=== PATIENT | female | born 1985 | race African-American/Black ===

== ENCOUNTER 2019-02-24 10:54 | Emergency (ER) | payer MEDICAID ==
[~2019-02-24] VITALS: Ht 182.9 cm; Wt 114.0 kg
[2019-02-24] MEDS ORDERED: ACETAMINOPHEN 325MG TABLET PO ONE (14:30)
[2019-02-24] MEDS ORDERED: SODIUM CHLORIDE 0.9% 1,000 ML IV ONE (14:31)
[2019-02-24 15:14] LABS: BASOPHILS % 0.9 % (0.0-2.0); EOSINOPHILS % 1.8 % (0.0-5.0); HEMATOCRIT. 34.9 % (36.0-48.0); HEMOGLOBIN. 11.3 g/dL (12.0-16.0); LYMPHOCYTES % 27.2 % (20.0-50.0); MEAN CORPUSCULAR HEMOGLOBIN 24.4 pg (28.0-32.0); MEAN CORPUSCULAR VOLUME 75.5 fL (81.0-99.0); MEAN PLATELET VOLUME 7.9 fl (7.4-10.4); MONOCYTES % 5.9 % (2.0-8.0); NEUTROPHILS % 64.2 % (40.0-76.0); PLATELET 376 x1000/uL (130-400); RED BLOOD CELL COUNT 4.62 mill/uL (4.2-5.4); RED CELL DISTRIBUTION WIDTH 16.7 % (11.6-14.6)
[2019-02-24 15:20] LABS: CHLORIDE 106 mEq/L (98-107)
[2019-02-24 15:31] LABS: B-HCG QUANTITATIVE < 1 mIU/mL (<3)
[2019-02-24 16:25] VITALS: BP 106/56
== END 2019-02-24 16:46 | disposition home or self-care (01) ==
LOC: ER 10:54
DX: D25.9 Leiomyoma of uterus, unspecified (principal); N83.202 Unspecified ovarian cyst, left side; J45.909 Unspecified asthma, uncomplicated
CPT/HCPCS: 36415; 76830; 76856; 80053; 83690; 84702; 85025; 86850; 86900; 86901; 99284; J7030; Z7610

== ENCOUNTER 2023-08-23 16:26 | Emergency (ER) | payer MEDICAID ==
[~2023-08-23] VITALS: Ht 175.3 cm; Wt 110.0 kg
[2023-08-23 16:36] VITALS: BP 145/86; PULSE 90; RESP 18; TEMP 98.6; O2SAT 98
== END 2023-08-23 21:25 | disposition left against medical advice (07) ==
LOC: ER 16:26
DX: R10.9 Unspecified abdominal pain (principal); Z53.21 Procedure and treatment not carried out due to patient leaving prior to being seen by health care provider

== ENCOUNTER 2023-09-20 02:16 | Emergency (ER) | payer MEDICAID, OTHER ==
[~2023-09-20] VITALS: Ht 175.3 cm; Wt 96.0 kg
[2023-09-20 02:19] VITALS: BP 110/80; PULSE 100; RESP 18; TEMP 98.1; O2SAT 100
[2023-09-20] MEDS: ACETAMINOPHEN 1000MG/100ML 100 ML IV ONE (02:30)
[2023-09-20] MEDS ORDERED: ONDANSETRON HCL 4MG/2ML INJ IV ONE (02:30)
[2023-09-20] MEDS: SODIUM CHLORIDE 0.9% 1,000 ML IV ONE (02:30)
[2023-09-20 03:01] LABS: BASOPHILS % 0.9 % (0.0-2.0); EOSINOPHILS % 2.3 % (0.0-5.0); HEMATOCRIT. 41.5 % (36.0-48.0); HEMOGLOBIN. 13.5 g/dL (12.0-16.0); LYMPHOCYTES % 27.7 % (20.0-50.0); MEAN CORPUSCULAR HEMOGLOBIN 27.9 pg (28.0-32.0); MEAN CORPUSCULAR HGB CONC 32.6 g/dL (31.0-37.0); MEAN CORPUSCULAR VOLUME 85.5 fL (81.0-99.0); MEAN PLATELET VOLUME 8.1 fl (7.4-10.4); MONOCYTES % 7.1 % (2.0-8.0); PLATELET 297 x1000/uL (130-400); RED BLOOD CELL COUNT 4.86 mill/uL (4.2-5.4); RED CELL DISTRIBUTION WIDTH 16.1 % (11.6-14.6)
[2023-09-20 03:14] LABS: CHLORIDE 106 mEq/L (98-107); POTASSIUM 3.8 mEq/L (3.5-5.1); SODIUM 138 mEq/L (136-145)
[2023-09-20 03:15] LABS: CALCIUM 9.9 mg/dL (8.7-10.4); CARBON DIOXIDE 25 mEq/L (21-32)
[2023-09-20 03:20] LABS: CREATININE 0.8 mg/dL (0.6-1.0); GLUCOSE 90 mg/dL (70-105); UREA NITROGEN BLOOD 9 mg/dL (9-23)
[2023-09-20 03:31] LABS: B-HCG QUANTITATIVE 1 mIU/mL (<3)
[2023-09-20] MEDS: ONDANSETRON HCL 4MG/2ML INJ IV NR (05:19)
[2023-09-20] MEDS ORDERED: METO-293 MT (05:42)
[2023-09-20] MEDS ORDERED: ACET-2708 MT (05:42)
[2023-09-20] MEDS ORDERED: PNV1TABL76 MT (05:42)
== END 2023-09-20 06:06 | disposition home or self-care (01) ==
LOC: ER 02:16
DX: O26.891 Other specified pregnancy related conditions, first trimester (principal); J45.909 Unspecified asthma, uncomplicated; R11.2 Nausea with vomiting, unspecified; Z3A.01 Less than 8 weeks gestation of pregnancy
CPT/HCPCS: 99285; 96365; 76830; 76856; 96375; 80048; 84702; 85025; 86850; 86900; 86901; 36415; J2405; J7030; J0131

== ENCOUNTER 2024-07-13 00:17 | Emergency (ER) | payer MEDICAID, OTHER ==
[~2024-07-13] VITALS: Ht 180.3 cm; Wt 143.0 kg
[~2024-07-13 00:17] MED LIST: ACET-2708 MT; METO-293 MT; PNV1TABL76 MT
[2024-07-13 00:25] VITALS: O2SAT 100
[2024-07-13 01:36] VITALS: TEMP 36.7; O2SAT 99
[2024-07-13 01:45] VITALS: BP 135/77; PULSE 67; RESP 14
[2024-07-13] MEDS: ONDANSETRON 4MG ODT PO STA (01:45)
[2024-07-13] MEDS: HYDROCODONE/ACETAMINOPHEN 5/325MG TABLET PO STA (01:45)
[2024-07-13 02:09] LABS: BASOPHILS % 0.7 % (0.0-2.0); EOSINOPHILS % 1.5 % (0.0-5.0); HEMATOCRIT. 41.5 % (36.0-48.0); HEMOGLOBIN. 13.7 g/dL (12.0-16.0); LYMPHOCYTES % 23.9 % (20.0-50.0); MEAN CORPUSCULAR HEMOGLOBIN 29.4 pg (28.0-32.0); MEAN CORPUSCULAR VOLUME 88.9 fL (81.0-99.0); MEAN PLATELET VOLUME 8.8 fl (7.4-10.4); MONOCYTES % 6.4 % (2.0-8.0); NEUTROPHILS % 67.5 % (40.0-76.0); PLATELET 281 x1000/uL (130-400); RED BLOOD CELL COUNT 4.67 mill/uL (4.2-5.4); RED CELL DISTRIBUTION WIDTH 14.4 % (11.6-14.6); WHITE BLOOD COUNT 7.4 x1000/uL (4.5-11.0)
[2024-07-13 02:17] LABS: CHLORIDE 107 mEq/L (98-107); POTASSIUM 4.1 mEq/L (3.5-5.1); SODIUM 139 mEq/L (136-145)
[2024-07-13 02:18] LABS: CALCIUM 9.2 mg/dL (8.7-10.4); CARBON DIOXIDE 25 mEq/L (21-32)
[2024-07-13 02:23] LABS: CREATININE 0.9 mg/dL (0.6-1.0); GLUCOSE 91 mg/dL (70-105)
[2024-07-13 02:24] LABS: HCG SCREEN NEGATIVE; UREA NITROGEN BLOOD 12 mg/dL (9-23)
[2024-07-13 02:25] LABS: ALANINE AMINOTRANSFERASE 13 IU/L (10-49); ALBUMIN 4.2 g/dL (3.2-4.8); ASPARTATE AMINOTRANSFERASE 18 IU/L (<34)
[2024-07-13 02:26] LABS: BILIRUBIN TOTAL 0.8 mg/dL (0.1-1.0); PROTEIN TOTAL 7.8 g/dL (6.0-8.3)
[2024-07-13 03:02] LABS: CLARITY URINE CLEAR (CLEAR); COLOR URINE YELLOW (YELLOW); GLUCOSE URINE NEGATIVE (NEGATIVE); KETONES URINE TRACE (NEGATIVE); LEUKOCYTE ESTERASE URINE NEGATIVE (NEGATIVE); NITRITE URINE NEGATIVE (NEGATIVE); OCCULT BLOOD URINE NEGATIVE (NEGATIVE); PH URINE 5.5 (4.5-8.0); PROTEIN URINE NEGATIVE (NEGATIVE); SPECIFIC GRAVITY URINE 1.029 (1.005-1.030)
[2024-07-13] MEDS ORDERED: ONDA4TAB50 MT (03:20)
[2024-07-13] MEDS ORDERED: HYDR-4001 MT (03:20)
== END 2024-07-13 03:32 | disposition home or self-care (01) ==
LOC: ER 00:17
DX: D25.9 Leiomyoma of uterus, unspecified (principal); R10.2 Pelvic and perineal pain; J45.909 Unspecified asthma, uncomplicated; Z86.018 Personal history of other benign neoplasm; Z79.899 Other long term (current) drug therapy
CPT/HCPCS: 99284; 76830; 76856; 80053; 81003; 81025; 84703; 85025; 36415; Q0162

== ENCOUNTER 2024-07-15 20:45 | Emergency (ER) | payer OTHER ==
[~2024-07-15] VITALS: Ht 182.9 cm; Wt 144.0 kg
[~2024-07-15 20:45] MED LIST changes: +HYDR-4001 MT; +ONDA4TAB50 MT
[2024-07-15 20:54] VITALS: BP 125/74; PULSE 75; RESP 18; TEMP 36.9; O2SAT 98; O2SAT 99
[2024-07-15 21:15] LABS: CLARITY URINE CLEAR (CLEAR); COLOR URINE DARK YELLOW (YELLOW); GLUCOSE URINE NEGATIVE (NEGATIVE); KETONES URINE TRACE (NEGATIVE); LEUKOCYTE ESTERASE URINE TRACE (NEGATIVE); NITRITE URINE NEGATIVE (NEGATIVE); OCCULT BLOOD URINE NEGATIVE (NEGATIVE); PROTEIN URINE NEGATIVE (NEGATIVE); SPECIFIC GRAVITY URINE 1.036 (1.005-1.030)
[2024-07-15 21:29] LABS: BACTERIA URINE NONE SEEN; RBC URINE NONE SEEN /hpf (0-2); SQUAMOUS EPITHELIAL CELL URINE FEW /lpf (RARE/1+); WBC URINE 0-2 /hpf (0-2)
[2024-07-15 21:30] LABS: *AMPHETAMINES SCREEN URINE NEGATIVE (NEGATIVE); *BARBITURATES SCREEN URINE NEGATIVE (NEGATIVE); *BENZODIAZEPINES SCREEN URINE NEGATIVE (NEGATIVE); *COCAINE SCREEN URINE NEGATIVE (NEGATIVE); METHADONE URINE SCREEN NEGATIVE (NEGATIVE); OPIATES URINE SCREEN PRESUMPTIVE POSITIVE (NEGATIVE); PHENCYCLIDINE URINE SCREEN NEGATIVE (NEGATIVE)
[2024-07-15 21:31] LABS: CANNABINOID URINE SCREEN NEGATIVE (NEGATIVE); ECSTASY MDMA SCREEN URINE NEGATIVE (NEGATIVE)
== END 2024-07-16 01:19 | disposition left against medical advice (07) ==
LOC: ER 20:45
DX: R10.30 Lower abdominal pain, unspecified (principal); R11.10 Vomiting, unspecified; J45.909 Unspecified asthma, uncomplicated; I49.9 Cardiac arrhythmia, unspecified; Z53.21 Procedure and treatment not carried out due to patient leaving prior to being seen by health care provider
CPT/HCPCS: 80305; 81003; 81025; 93005

== ENCOUNTER 2024-07-21 20:53 | Emergency (ER) | payer OTHER ==
[~2024-07-21] VITALS: Ht 175.3 cm; Wt 98.0 kg
[2024-07-21 21:13] VITALS: O2SAT 100
[2024-07-21 21:50] VITALS: BP 121/65; PULSE 67; RESP 12; TEMP 36.9; O2SAT 100
[2024-07-21] MEDS ORDERED: ONDANSETRON HCL 4MG/2ML INJ IV STA (22:23)
[2024-07-21] MEDS ORDERED: MAGNESIUM/ALUMINUM HYDROXIDE/SIMETHICONE 30ML UDC PO STA (22:23)
[2024-07-21] MEDS ORDERED: ACETAMINOPHEN 1000MG/100ML 100 ML IV ONE (22:30)
[2024-07-21] MEDS ORDERED: SODIUM CHLORIDE 0.9% 1,000 ML IV ONE (22:30)
== END 2024-07-22 01:24 | disposition admitted as inpatient to this hospital (09) ==
LOC: ER 20:53
DX: K92.0 Hematemesis (principal); J45.909 Unspecified asthma, uncomplicated; F41.9 Anxiety disorder, unspecified; Z88.6 Allergy status to analgesic agent; Z90.49 Acquired absence of other specified parts of digestive tract; Z79.899 Other long term (current) drug therapy; Z00.00 Encounter for general adult medical examination without abnormal findings
CPT/HCPCS: 99284; 76856; J2405; J7030; J0131

== ENCOUNTER 2024-08-08 03:44 | Emergency (ER) | payer MEDICAID, OTHER ==
[~2024-08-08] VITALS: Ht 170.2 cm; Wt 102.0 kg
[2024-08-08 03:51] VITALS: BP 136/75; PULSE 67; RESP 18; TEMP 36.9; O2SAT 99
[2024-08-08 04:28] VITALS: TEMP 98.5
[2024-08-08] MEDS: ONDANSETRON 4MG ODT PO ONE (04:28)
[2024-08-08] MEDS: ACETAMINOPHEN 325MG TABLET PO ONE (04:28)
[2024-08-08] MEDS ORDERED: METO-293 MT (05:37)
[2024-08-08] MEDS ORDERED: ACET-2708 MT (05:37)
[2024-08-08] MEDS ORDERED: NAPR-679 MT (05:37)
[2024-08-08] MEDS: IBUPROFEN 400MG TABLET PO ONE (05:54)
== END 2024-08-08 05:58 | disposition left against medical advice (07) ==
LOC: ER 03:44
DX: R10.2 Pelvic and perineal pain (principal); R11.0 Nausea; F41.9 Anxiety disorder, unspecified; J45.909 Unspecified asthma, uncomplicated; Z90.49 Acquired absence of other specified parts of digestive tract; Z86.018 Personal history of other benign neoplasm
CPT/HCPCS: 99283; Q0162

== ENCOUNTER 2024-08-14 01:23 | Emergency (ER) | payer MEDICAID ==
[~2024-08-14] VITALS: Ht 177.8 cm; Wt 141.4 kg
[~2024-08-14 01:23] MED LIST changes: +NAPR-679 MT
[2024-08-14 01:30] VITALS: TEMP 36.9
[2024-08-14] MEDS ORDERED: METHYLPREDNISOLONE 40MG/ML INJ IV ONE (02:00)
[2024-08-14] MEDS: METHYLPREDNISOLONE SOD SUCC 125MG/2ML (ACT-O-VIAL) IV NR (02:37)
[2024-08-14] MEDS: ACETAMINOPHEN 500MG TABLET PO ONE (02:39)
[2024-08-14 02:42] LABS: HEMATOCRIT. 36.3 % (36.0-48.0); HEMOGLOBIN. 11.9 g/dL (12.0-16.0); MEAN CORPUSCULAR HEMOGLOBIN 29.4 pg (28.0-32.0); MEAN CORPUSCULAR HGB CONC 32.9 g/dL (31.0-37.0); MEAN CORPUSCULAR VOLUME 89.3 fL (81.0-99.0); MEAN PLATELET VOLUME 7.6 fl (7.4-10.4); PLATELET 370 x1000/uL (130-400); RED BLOOD CELL COUNT 4.06 mill/uL (4.2-5.4); RED CELL DISTRIBUTION WIDTH 14.7 % (11.6-14.6); WHITE BLOOD COUNT 9.2 x1000/uL (4.5-11.0)
[2024-08-14 02:52] LABS: CARBON DIOXIDE 23 mEq/L (21-32); CHLORIDE 108 mEq/L (98-107); POTASSIUM 4.1 mEq/L (3.5-5.1); SODIUM 142 mEq/L (136-145)
[2024-08-14 02:53] LABS: CALCIUM 9.6 mg/dL (8.7-10.4)
[2024-08-14 02:58] LABS: DIFFERENTIAL COMMENT 1; GLUCOSE 118 mg/dL (70-105); UREA NITROGEN BLOOD 10 mg/dL (9-23)
[2024-08-14 02:59] LABS: ALANINE AMINOTRANSFERASE 13 IU/L (10-49); ASPARTATE AMINOTRANSFERASE 18 IU/L (<34)
[2024-08-14 03:00] LABS: ALBUMIN 4.7 g/dL (3.2-4.8); BILIRUBIN DIRECT 0.2 mg/dL (<=3.0); BILIRUBIN TOTAL 0.7 mg/dL (0.1-1.0); PROTEIN TOTAL 7.8 g/dL (6.0-8.3)
[2024-08-14] MEDS: IPRATROPIUM/ALBUTEROL 0.5-3(2.5)MG/3ML NEB HHN ONE (03:45)
[2024-08-14 04:00] VITALS: PULSE 70; RESP 18; O2SAT 97
[2024-08-14] MEDS ORDERED: IPRATROPIUM/ALBUTEROL 0.5-3(2.5)MG/3ML NEB ONE (04:11)
[2024-08-14 04:20] LABS: HCG SCREEN NEGATIVE
[2024-08-14 04:32] VITALS: PULSE 72; RESP 20; O2SAT 98
[2024-08-14 04:53] LABS: PLATELET ESTIMATE NORMAL
[2024-08-14 05:07] LABS: TROPONIN I HIGH SENSITIVITY < 4 ng/L (3.0-34)
[2024-08-14] MEDS ORDERED: TOPUD MT (05:22)
[2024-08-14 05:27] VITALS: BP 133/82; PULSE 95; RESP 14; O2SAT 94
== END 2024-08-14 05:32 | disposition home or self-care (01) ==
LOC: ER 01:23
DX: R07.89 Other chest pain (principal); J45.901 Unspecified asthma with (acute) exacerbation; R10.84 Generalized abdominal pain; F41.9 Anxiety disorder, unspecified; Z79.899 Other long term (current) drug therapy
CPT/HCPCS: 80076; 80048; 84703; 83690; 85025; 84484; 36415; 71045; 76705; 94640; 99285; J2919; Z7610 ×3

== ENCOUNTER 2024-08-18 02:16 | Emergency (ER) | payer MEDICAID, OTHER ==
[~2024-08-18] VITALS: Ht 177.8 cm; Wt 145.0 kg
[~2024-08-18 02:16] MED LIST changes: +TOPUD MT
[2024-08-18 02:46] VITALS: O2SAT 98
[2024-08-18 03:10] LABS: BASOPHILS % 0.4 % (0.0-2.0); HEMATOCRIT. 36.4 % (36.0-48.0); LYMPHOCYTES % 19.2 % (20.0-50.0); MEAN CORPUSCULAR HEMOGLOBIN 29.4 pg (28.0-32.0); MEAN PLATELET VOLUME 7.6 fl (7.4-10.4); NEUTROPHILS % 74.4 % (40.0-76.0); PLATELET 315 x1000/uL (130-400); RED BLOOD CELL COUNT 4.09 mill/uL (4.2-5.4); RED CELL DISTRIBUTION WIDTH 14.6 % (11.6-14.6); WHITE BLOOD COUNT 8.4 x1000/uL (4.5-11.0)
[2024-08-18 03:18] LABS: CARBON DIOXIDE 26 mEq/L (21-32); CHLORIDE 108 mEq/L (98-107); POTASSIUM 3.5 mEq/L (3.5-5.1); SODIUM 143 mEq/L (136-145)
[2024-08-18 03:19] LABS: CALCIUM 9.1 mg/dL (8.7-10.4)
[2024-08-18 03:24] LABS: CREATININE 0.9 mg/dL (0.6-1.0); GLUCOSE 99 mg/dL (70-105); UREA NITROGEN BLOOD 11 mg/dL (9-23)
[2024-08-18 03:25] LABS: ALANINE AMINOTRANSFERASE 14 IU/L (10-49); ALBUMIN 4.3 g/dL (3.2-4.8); ASPARTATE AMINOTRANSFERASE 15 IU/L (<34)
[2024-08-18 03:26] LABS: BILIRUBIN DIRECT 0.1 mg/dL (<=3.0); BILIRUBIN TOTAL 0.5 mg/dL (0.1-1.0)
[2024-08-18] MEDS: ACETAMINOPHEN 325MG TABLET PO ONE (03:36)
[2024-08-18] MEDS: ONDANSETRON HCL 4MG TABLET PO ONE (03:36)
[2024-08-18 04:07] LABS: HCG SCREEN NEGATIVE
[2024-08-18 04:38] VITALS: BP 127/64; PULSE 81; RESP 18; TEMP 36.7; O2SAT 99
== END 2024-08-18 05:03 | disposition home or self-care (01) ==
LOC: ER 02:16
DX: R10.2 Pelvic and perineal pain (principal); J45.909 Unspecified asthma, uncomplicated
CPT/HCPCS: 99283; 80076; 80048; 84703; 85025; 36415; Q0162

== ENCOUNTER 2024-08-20 22:10 | Emergency (ER) | payer OTHER ==
[~2024-08-20] VITALS: Ht 177.8 cm; Wt 144.4 kg
[2024-08-20 22:13] VITALS: O2SAT 100
[2024-08-20 22:23] VITALS: TEMP 36.9
[2024-08-21] MEDS: HYDROCODONE/ACETAMINOPHEN 5/325MG TABLET PO STA (00:26)
[2024-08-21 00:27] LABS: BASOPHILS % 0.8 % (0.0-2.0); HEMATOCRIT. 39.9 % (36.0-48.0); HEMOGLOBIN. 13.1 g/dL (12.0-16.0); LYMPHOCYTES % 23.2 % (20.0-50.0); MEAN CORPUSCULAR HEMOGLOBIN 29.6 pg (28.0-32.0); MEAN CORPUSCULAR HGB CONC 32.8 g/dL (31.0-37.0); MEAN CORPUSCULAR VOLUME 90.3 fL (81.0-99.0); MEAN PLATELET VOLUME 7.6 fl (7.4-10.4); MONOCYTES % 5.6 % (2.0-8.0); NEUTROPHILS % 68.4 % (40.0-76.0); PLATELET 339 x1000/uL (130-400); RED BLOOD CELL COUNT 4.42 mill/uL (4.2-5.4); RED CELL DISTRIBUTION WIDTH 14.3 % (11.6-14.6); WHITE BLOOD COUNT 7.1 x1000/uL (4.5-11.0)
[2024-08-21 00:44] LABS: CARBON DIOXIDE 27 mEq/L (21-32); CHLORIDE 109 mEq/L (98-107); HCG SCREEN NEGATIVE; POTASSIUM 4.3 mEq/L (3.5-5.1); SODIUM 141 mEq/L (136-145)
[2024-08-21 00:45] LABS: CALCIUM 9.8 mg/dL (8.7-10.4)
[2024-08-21 00:49] LABS: GLUCOSE 86 mg/dL (70-105)
[2024-08-21 00:50] LABS: UREA NITROGEN BLOOD 8 mg/dL (9-23)
[2024-08-21 00:51] LABS: ALANINE AMINOTRANSFERASE 22 IU/L (10-49); ALBUMIN 4.7 g/dL (3.2-4.8); ASPARTATE AMINOTRANSFERASE 28 IU/L (<34)
[2024-08-21 00:52] LABS: BILIRUBIN TOTAL 0.4 mg/dL (0.1-1.0); PROTEIN TOTAL 8.2 g/dL (6.0-8.3)
[2024-08-21 00:58] LABS: CLARITY URINE CLOUDY (CLEAR); COLOR URINE RED (YELLOW); GLUCOSE URINE NEGATIVE (NEGATIVE); KETONES URINE NEGATIVE (NEGATIVE); LEUKOCYTE ESTERASE URINE 1+ (NEGATIVE); NITRITE URINE NEGATIVE (NEGATIVE); OCCULT BLOOD URINE 3+ (NEGATIVE); PROTEIN URINE 1+ (NEGATIVE); SPECIFIC GRAVITY URINE 1.018 (1.005-1.030)
[2024-08-21] MEDS: ONDANSETRON HCL 4MG/2ML INJ IM ONE (01:06)
[2024-08-21 02:55] LABS: SQUAMOUS EPITHELIAL CELL URINE FEW /lpf (RARE/1+)
[2024-08-21 02:57] LABS: RBC URINE TNTC /hpf (0-2); WBC URINE 0-2 /hpf (0-2)
[2024-08-21 02:58] LABS: BACTERIA URINE NONE SEEN
[2024-08-21] MEDS ORDERED: ACET-2708 MT (03:01)
[2024-08-21 03:10] VITALS: BP 126/74; PULSE 90; RESP 16; O2SAT 98
== END 2024-08-21 03:12 | disposition home or self-care (01) ==
LOC: ER 22:10
DX: D25.9 Leiomyoma of uterus, unspecified (principal); R10.30 Lower abdominal pain, unspecified; J45.909 Unspecified asthma, uncomplicated; F32.A Depression, unspecified; F12.90 Cannabis use, unspecified, uncomplicated; Z79.1 Long term (current) use of non-steroidal anti-inflammatories (NSAID); Z79.899 Other long term (current) drug therapy
CPT/HCPCS: 36415; 74176; 76856; 80053; 81003; 81025; 84703; 85025; 99284

== ENCOUNTER 2024-08-25 21:52 | Emergency (ER) | payer MEDICAID, OTHER ==
[~2024-08-25] VITALS: Ht 177.8 cm; Wt 143.0 kg
[2024-08-25 21:55] VITALS: O2SAT 97
[2024-08-25 23:01] LABS: BASOPHILS % 0.7 % (0.0-2.0); EOSINOPHILS % 0.8 % (0.0-5.0); LYMPHOCYTES % 19.7 % (20.0-50.0); MEAN CORPUSCULAR HGB CONC 32.5 g/dL (31.0-37.0); MEAN CORPUSCULAR VOLUME 89.3 fL (81.0-99.0); MEAN PLATELET VOLUME 7.9 fl (7.4-10.4); MONOCYTES % 5.1 % (2.0-8.0); NEUTROPHILS % 73.7 % (40.0-76.0); PLATELET 343 x1000/uL (130-400); RED BLOOD CELL COUNT 4.15 mill/uL (4.2-5.4); RED CELL DISTRIBUTION WIDTH 14.7 % (11.6-14.6); WHITE BLOOD COUNT 9.3 x1000/uL (4.5-11.0)
[2024-08-25 23:10] LABS: CARBON DIOXIDE 25 mEq/L (21-32); CHLORIDE 112 mEq/L (98-107); POTASSIUM 3.6 mEq/L (3.5-5.1); SODIUM 141 mEq/L (136-145)
[2024-08-25 23:11] LABS: CALCIUM 9.2 mg/dL (8.7-10.4)
[2024-08-25 23:15] LABS: CREATININE 1.1 mg/dL (0.6-1.0); GLUCOSE 86 mg/dL (70-105)
[2024-08-25 23:16] LABS: UREA NITROGEN BLOOD 14 mg/dL (9-23)
[2024-08-25 23:17] LABS: ALANINE AMINOTRANSFERASE 14 IU/L (10-49); ALBUMIN 4.4 g/dL (3.2-4.8); ASPARTATE AMINOTRANSFERASE 15 IU/L (<34); B-HCG QUANTITATIVE 2 mIU/mL (<6)
[2024-08-25 23:18] LABS: BILIRUBIN TOTAL 0.6 mg/dL (0.1-1.0); PROTEIN TOTAL 7.4 g/dL (6.0-8.3)
[2024-08-25 23:22] LABS: CLARITY URINE CLOUDY (CLEAR); COLOR URINE RED (YELLOW); GLUCOSE URINE NEGATIVE (NEGATIVE); KETONES URINE NEGATIVE (NEGATIVE); LEUKOCYTE ESTERASE URINE 2+ (NEGATIVE); NITRITE URINE POSITIVE (NEGATIVE); OCCULT BLOOD URINE 3+ (NEGATIVE); PROTEIN URINE 3+ (NEGATIVE); UROBILINOGEN URINE 0.2 E.U./dL (0.2-1.0)
[2024-08-25 23:25] LABS: BACTERIA URINE 3+; RBC URINE TNTC /hpf (0-2); SQUAMOUS EPITHELIAL CELL URINE 1+ /lpf (RARE/1+)
[2024-08-25] MEDS: ACETAMINOPHEN 325MG TABLET PO ONE (23:59)
[2024-08-25] MEDS: ONDANSETRON HCL 4MG/2ML INJ IV ONE (23:59)
[2024-08-26] MEDS: SODIUM CHLORIDE 0.9% 1,000 ML IV ONE
[2024-08-26] MEDS ORDERED: NITR-87 MT (00:50)
[2024-08-26 01:35] VITALS: BP 114/85; PULSE 83; RESP 12; TEMP 36.8; O2SAT 100
== END 2024-08-26 01:41 | disposition home or self-care (01) ==
LOC: ER 21:52
DX: N39.0 Urinary tract infection, site not specified (principal); D25.9 Leiomyoma of uterus, unspecified; R11.2 Nausea with vomiting, unspecified; R10.2 Pelvic and perineal pain; F12.90 Cannabis use, unspecified, uncomplicated; J45.909 Unspecified asthma, uncomplicated; F41.9 Anxiety disorder, unspecified; Z79.1 Long term (current) use of non-steroidal anti-inflammatories (NSAID); Z79.899 Other long term (current) drug therapy
CPT/HCPCS: 80053; 81003; 81025; 84702; 85025; 86850; 86900; 86901; 36415; 76830; 76856; 96374; 99285; 96361; J2405; J7030

== ENCOUNTER 2024-08-29 00:41 | Emergency (ER) | payer OTHER ==
[~2024-08-29] VITALS: Ht 177.8 cm; Wt 142.0 kg
[~2024-08-29 00:41] MED LIST changes: +NITR-87 MT
[2024-08-29 01:16] VITALS: BP 129/80; PULSE 87; RESP 18; TEMP 36.8; O2SAT 98; O2SAT 99
[2024-08-29] MEDS ORDERED: ACETAMINOPHEN 325MG TABLET PO STA (01:28)
[2024-08-29 03:18] LABS: BASOPHILS % 0.7 % (0.0-2.0); EOSINOPHILS % 1.2 % (0.0-5.0); HEMATOCRIT. 37.1 % (36.0-48.0); HEMOGLOBIN. 12.1 g/dL (12.0-16.0); LYMPHOCYTES % 20.3 % (20.0-50.0); MEAN CORPUSCULAR HEMOGLOBIN 29.1 pg (28.0-32.0); MEAN CORPUSCULAR HGB CONC 32.6 g/dL (31.0-37.0); MEAN CORPUSCULAR VOLUME 89.3 fL (81.0-99.0); MEAN PLATELET VOLUME 7.9 fl (7.4-10.4); MONOCYTES % 3.1 % (2.0-8.0); NEUTROPHILS % 74.7 % (40.0-76.0); PLATELET 350 x1000/uL (130-400); RED BLOOD CELL COUNT 4.16 mill/uL (4.2-5.4); RED CELL DISTRIBUTION WIDTH 14.4 % (11.6-14.6); WHITE BLOOD COUNT 11.1 x1000/uL (4.5-11.0)
[2024-08-29 03:35] LABS: CARBON DIOXIDE 27 mEq/L (21-32); CHLORIDE 106 mEq/L (98-107); POTASSIUM 3.5 mEq/L (3.5-5.1); SODIUM 138 mEq/L (136-145)
[2024-08-29 03:36] LABS: CALCIUM 9.8 mg/dL (8.7-10.4)
[2024-08-29 03:41] LABS: GLUCOSE 88 mg/dL (70-105); UREA NITROGEN BLOOD 13 mg/dL (9-23)
[2024-08-29 03:42] LABS: ALANINE AMINOTRANSFERASE 12 IU/L (10-49); ALBUMIN 4.8 g/dL (3.2-4.8); ASPARTATE AMINOTRANSFERASE 17 IU/L (<34)
[2024-08-29 03:43] LABS: BILIRUBIN TOTAL 0.5 mg/dL (0.1-1.0); PROTEIN TOTAL 7.6 g/dL (6.0-8.3)
[2024-08-29 05:10] LABS: HCG SCREEN NEGATIVE
== END 2024-08-29 08:47 | disposition left against medical advice (07) ==
LOC: ER 00:43
DX: R10.2 Pelvic and perineal pain (principal); N93.8 Other specified abnormal uterine and vaginal bleeding; F41.9 Anxiety disorder, unspecified; F10.90 Alcohol use, unspecified, uncomplicated; F12.90 Cannabis use, unspecified, uncomplicated; J45.909 Unspecified asthma, uncomplicated; Z79.1 Long term (current) use of non-steroidal anti-inflammatories (NSAID); Z86.018 Personal history of other benign neoplasm; Z90.49 Acquired absence of other specified parts of digestive tract; Y90.9 Presence of alcohol in blood, level not specified
CPT/HCPCS: 36415; 76856; 80053; 84703; 85025; 99284

== ENCOUNTER 2024-09-29 00:21 | Emergency (ER) | payer MEDICAID ==
[~2024-09-29] VITALS: Ht 177.8 cm; Wt 138.0 kg
[2024-09-29 00:48] VITALS: O2SAT 100
[2024-09-29 00:50] VITALS: BP 117/72; PULSE 95; RESP 18; TEMP 36.7; O2SAT 99
[2024-09-29 02:08] LABS: BASOPHILS % 0.9 % (0.0-2.0); EOSINOPHILS % 0.4 % (0.0-5.0); HEMATOCRIT. 34.9 % (36.0-48.0); HEMOGLOBIN. 10.7 g/dL (12.0-16.0); LYMPHOCYTES % 15.8 % (20.0-50.0); MEAN PLATELET VOLUME 8.0 fl (7.4-10.4); MONOCYTES % 3.6 % (2.0-8.0); NEUTROPHILS % 79.3 % (40.0-76.0); PLATELET 384 x1000/uL (130-400); RED BLOOD CELL COUNT 4.05 mill/uL (4.2-5.4); RED CELL DISTRIBUTION WIDTH 14.9 % (11.6-14.6)
[2024-09-29 02:20] LABS: CREATININE 1.0 mg/dL (0.6-1.0); UREA NITROGEN BLOOD 10 mg/dL (9-23)
[2024-09-29 02:28] LABS: B-HCG QUANTITATIVE < 1 mIU/mL (<6)
[2024-09-29 02:55] VITALS: TEMP 98
[2024-09-29] MEDS: ACETAMINOPHEN 500MG TABLET PO ONE (02:55)
[2024-09-29] MEDS: ONDANSETRON 4MG ODT PO ONE (02:55)
== END 2024-09-29 03:24 | disposition home or self-care (01) ==
LOC: ER 00:21
DX: O26.891 Other specified pregnancy related conditions, first trimester (principal); R10.9 Unspecified abdominal pain; R10.2 Pelvic and perineal pain; O99.511 Diseases of the respiratory system complicating pregnancy, first trimester; J45.909 Unspecified asthma, uncomplicated; Z3A.01 Less than 8 weeks gestation of pregnancy
CPT/HCPCS: 99284; 76856; 80048; 84702; 85025; 86850; 86900; 86901; 36415; Q0162

== ENCOUNTER 2024-10-24 17:41 | Emergency (ER) | payer MEDICAID ==
[~2024-10-24] VITALS: Ht 167.6 cm; Wt 135.0 kg
[2024-10-24 17:42] VITALS: O2SAT 97
[2024-10-24 18:10] VITALS: BP 132/74; PULSE 72; RESP 16; TEMP 36.9; O2SAT 100
[2024-10-24 19:17] LABS: BASOPHILS % 0.7 % (0.0-2.0); EOSINOPHILS % 1.5 % (0.0-5.0); HEMATOCRIT. 36.8 % (36.0-48.0); HEMOGLOBIN. 11.3 g/dL (12.0-16.0); LYMPHOCYTES % 24.1 % (20.0-50.0); MEAN PLATELET VOLUME 7.8 fl (7.4-10.4); MONOCYTES % 5.7 % (2.0-8.0); NEUTROPHILS % 68.0 % (40.0-76.0); PLATELET 384 x1000/uL (130-400); RED BLOOD CELL COUNT 4.48 mill/uL (4.2-5.4); RED CELL DISTRIBUTION WIDTH 16.0 % (11.6-14.6)
[2024-10-24 19:27] LABS: CREATININE 0.9 mg/dL (0.6-1.0); UREA NITROGEN BLOOD 11 mg/dL (9-23)
[2024-10-24 19:29] LABS: ASPARTATE AMINOTRANSFERASE 17 IU/L (<34); BILIRUBIN DIRECT 0.2 mg/dL (<=3.0); BILIRUBIN TOTAL 0.6 mg/dL (0.1-1.0); PROTEIN TOTAL 7.8 g/dL (6.0-8.3)
[2024-10-24 19:39] LABS: B-HCG QUANTITATIVE 1 mIU/mL (<6)
[2024-10-24] MEDS: ACETAMINOPHEN 325MG TABLET PO ONE (19:56)
[2024-10-24] MEDS: ONDANSETRON 4MG ODT PO ONE (20:24)
[2024-10-24] MEDS ORDERED: KETOROLAC 30MG/ML VIAL IM ONE (23:00)
[2024-10-24] MEDS ORDERED: IBUP-2029 MT (23:28)
== END 2024-10-24 23:28 | disposition left against medical advice (07) ==
LOC: ER 17:52
DX: D25.1 Intramural leiomyoma of uterus (principal); R10.2 Pelvic and perineal pain
CPT/HCPCS: 99284; 76856; 80076; 80048; 84702; 83690; 85025; 36415; Q0162

== ENCOUNTER 2024-11-16 21:04 | Emergency (ER) | payer MEDICAID ==
[~2024-11-16] VITALS: Ht 180.3 cm; Wt 140.0 kg
[~2024-11-16 21:04] MED LIST changes: +IBUP-2029 MT
[2024-11-16 21:13] VITALS: O2SAT 98
[2024-11-16 21:36] VITALS: PULSE 80; RESP 16; TEMP 37; O2SAT 100
[2024-11-16 22:15] LABS: BASOPHILS % 0.7 % (0.0-2.0); EOSINOPHILS % 1.5 % (0.0-5.0); HEMATOCRIT. 37.9 % (36.0-48.0); HEMOGLOBIN. 11.8 g/dL (12.0-16.0); LYMPHOCYTES % 21.3 % (20.0-50.0); MEAN PLATELET VOLUME 8.0 fl (7.4-10.4); MONOCYTES % 4.6 % (2.0-8.0); NEUTROPHILS % 71.9 % (40.0-76.0); PLATELET 316 x1000/uL (130-400); RED BLOOD CELL COUNT 4.83 mill/uL (4.2-5.4); RED CELL DISTRIBUTION WIDTH 16.5 % (11.6-14.6)
[2024-11-16 22:29] LABS: CREATININE 0.9 mg/dL (0.6-1.0); UREA NITROGEN BLOOD 9 mg/dL (9-23)
[2024-11-16 22:34] LABS: B-HCG QUANTITATIVE < 1 mIU/mL (<6)
[2024-11-16 23:08] LABS: HCG SCREEN NEGATIVE
[2024-11-16] MEDS ORDERED: SODIUM CHLORIDE 0.9% 1,000 ML IV NR (23:20)
[2024-11-16] MEDS ORDERED: MORPHINE SULFATE 4 MG/ML INJ (FOR IV/IM USE) IV NR (23:21)
[2024-11-16] MEDS ORDERED: ONDANSETRON HCL 4MG/2ML INJ IV NR (23:22)
[2024-11-16] MEDS ORDERED: ACETAMINOPHEN 1000MG/100ML 100 ML IV NR (23:30)
[2024-11-17 00:40] LABS: CLARITY URINE CLOUDY (CLEAR); COLOR URINE YELLOW (YELLOW); GLUCOSE URINE NEGATIVE (NEGATIVE); KETONES URINE 1+ (NEGATIVE); LEUKOCYTE ESTERASE URINE TRACE (NEGATIVE); NITRITE URINE NEGATIVE (NEGATIVE); OCCULT BLOOD URINE 3+ (NEGATIVE); PH URINE 6.0 (4.5-8.0); PROTEIN URINE 1+ (NEGATIVE); SPECIFIC GRAVITY URINE 1.037 (1.005-1.030); UROBILINOGEN URINE 1.0 E.U./dL (0.2-1.0)
[2024-11-17 00:53] LABS: BACTERIA URINE TRACE; MUCUS URINE 2+ /lpf (< = 2+); RBC URINE 25-50 /hpf (0-2); SQUAMOUS EPITHELIAL CELL URINE 3+ /lpf (RARE/1+); WBC URINE 0-2 /hpf (0-2)
[2024-11-17 00:55] LABS: *AMPHETAMINES SCREEN URINE NEGATIVE (NEGATIVE); *BARBITURATES SCREEN URINE NEGATIVE (NEGATIVE); *BENZODIAZEPINES SCREEN URINE NEGATIVE (NEGATIVE); *COCAINE SCREEN URINE NEGATIVE (NEGATIVE); CANNABINOID URINE SCREEN NEGATIVE (NEGATIVE); ECSTASY MDMA SCREEN URINE NEGATIVE (NEGATIVE); METHADONE URINE SCREEN NEGATIVE (NEGATIVE); OPIATES URINE SCREEN NEGATIVE (NEGATIVE); PHENCYCLIDINE URINE SCREEN NEGATIVE (NEGATIVE)
[2024-11-17 01:18] VITALS: BP 158/96
== END 2024-11-17 01:23 | disposition left against medical advice (07) ==
LOC: ER 21:04
DX: D25.1 Intramural leiomyoma of uterus (principal); R10.30 Lower abdominal pain, unspecified; R10.2 Pelvic and perineal pain; F12.90 Cannabis use, unspecified, uncomplicated; F41.9 Anxiety disorder, unspecified; J45.909 Unspecified asthma, uncomplicated; Z79.1 Long term (current) use of non-steroidal anti-inflammatories (NSAID); Z86.018 Personal history of other benign neoplasm; Z79.899 Other long term (current) drug therapy
CPT/HCPCS: 36415; 76830; 76856; 80048; 80305; 80320; 81003; 84702; 84703; 85025; 86850; 86900; 99284; G0480; J0131

== ENCOUNTER 2024-12-09 17:45 | Emergency (ER) | payer MEDICAID ==
[~2024-12-09] VITALS: Ht 180.3 cm; Wt 140.0 kg
[~2024-12-09 17:45] MED LIST changes: +IBUP-1455 MT; -IBUP-2029 MT
[2024-12-09 17:48] VITALS: O2SAT 98
[2024-12-09 17:54] VITALS: BP 153/79; PULSE 105; RESP 16; TEMP 36.7; O2SAT 98
[2024-12-09 18:31] VITALS: TEMP 98.1
[2024-12-09] MEDS: ONDANSETRON 4MG ODT PO ONE (18:31)
[2024-12-09] MEDS: ACETAMINOPHEN 500MG TABLET PO ONE (18:31)
[2024-12-09 18:41] LABS: CLARITY URINE CLEAR (CLEAR); COLOR URINE YELLOW (YELLOW); GLUCOSE URINE NEGATIVE (NEGATIVE); KETONES URINE NEGATIVE (NEGATIVE); LEUKOCYTE ESTERASE URINE NEGATIVE (NEGATIVE); NITRITE URINE NEGATIVE (NEGATIVE); OCCULT BLOOD URINE NEGATIVE (NEGATIVE); PH URINE 5.5 (4.5-8.0); PROTEIN URINE NEGATIVE (NEGATIVE); SPECIFIC GRAVITY URINE 1.025 (1.005-1.030); UROBILINOGEN URINE 0.2 E.U./dL (0.2-1.0)
[2024-12-09 18:54] LABS: BASOPHILS % 0.7 % (0.0-2.0); EOSINOPHILS % 2.0 % (0.0-5.0); HEMATOCRIT. 38.1 % (36.0-48.0); HEMOGLOBIN. 12.1 g/dL (12.0-16.0); LYMPHOCYTES % 23.0 % (20.0-50.0); MEAN PLATELET VOLUME 9.1 fl (7.4-10.4); MONOCYTES % 6.5 % (2.0-8.0); NEUTROPHILS % 67.8 % (40.0-76.0); PLATELET 249 x1000/uL (130-400); RED BLOOD CELL COUNT 4.81 mill/uL (4.2-5.4); RED CELL DISTRIBUTION WIDTH 20.3 % (11.6-14.6)
[2024-12-09 19:05] LABS: HCG SCREEN NEGATIVE
[2024-12-09 19:08] LABS: CREATININE 0.9 mg/dL (0.6-1.0); UREA NITROGEN BLOOD 10 mg/dL (9-23)
[2024-12-09 19:10] LABS: ASPARTATE AMINOTRANSFERASE 44 IU/L (<34); BILIRUBIN DIRECT 0.2 mg/dL (<=3.0); BILIRUBIN TOTAL 0.8 mg/dL (0.1-1.0); PROTEIN TOTAL 7.2 g/dL (6.0-8.3)
== END 2024-12-09 20:27 | disposition home or self-care (01) ==
LOC: ER 17:45
DX: N83.201 Unspecified ovarian cyst, right side (principal); R10.2 Pelvic and perineal pain; J45.909 Unspecified asthma, uncomplicated; F41.9 Anxiety disorder, unspecified; Z79.899 Other long term (current) drug therapy; Z88.6 Allergy status to analgesic agent
CPT/HCPCS: 99284; 74176; 76856; 80076; 80048; 81003; 81025; 84703; 83690; 85025; 36415; Q0162

== ENCOUNTER 2024-12-15 19:37 | Emergency (ER) | payer MEDICAID ==
[~2024-12-15] VITALS: Ht 180.3 cm; Wt 141.6 kg
[2024-12-15 20:04] VITALS: BP 150/73; PULSE 71; RESP 16; TEMP 36.6; O2SAT 99
[2024-12-15 21:00] LABS: CLARITY URINE CLEAR (CLEAR); COLOR URINE YELLOW (YELLOW); GLUCOSE URINE NEGATIVE (NEGATIVE); KETONES URINE NEGATIVE (NEGATIVE); LEUKOCYTE ESTERASE URINE NEGATIVE (NEGATIVE); NITRITE URINE NEGATIVE (NEGATIVE); OCCULT BLOOD URINE NEGATIVE (NEGATIVE); PH URINE 5.5 (4.5-8.0); PROTEIN URINE NEGATIVE (NEGATIVE); SPECIFIC GRAVITY URINE 1.023 (1.005-1.030); UROBILINOGEN URINE 0.2 E.U./dL (0.2-1.0)
[2024-12-15 21:01] LABS: UCG KIT EXPIRATION DATE 02-12-2027; UCG KIT LOT# 970990; UCG SCREEN NEGATIVE
[2024-12-15 22:06] LABS: BASOPHILS % 1.0 % (0.0-2.0); EOSINOPHILS % 2.6 % (0.0-5.0); HEMATOCRIT. 40.6 % (36.0-48.0); HEMOGLOBIN. 12.8 g/dL (12.0-16.0); LYMPHOCYTES % 18.9 % (20.0-50.0); MEAN PLATELET VOLUME 9.0 fl (7.4-10.4); MONOCYTES % 5.6 % (2.0-8.0); NEUTROPHILS % 71.9 % (40.0-76.0); PLATELET 263 x1000/uL (130-400); RED BLOOD CELL COUNT 5.03 mill/uL (4.2-5.4); RED CELL DISTRIBUTION WIDTH 20.6 % (11.6-14.6)
[2024-12-15 22:19] LABS: CREATININE 0.9 mg/dL (0.6-1.0); UREA NITROGEN BLOOD 11 mg/dL (9-23)
[2024-12-15] MEDS ORDERED: HYDROCODONE/ACETAMINOPHEN 5/325MG TABLET PO ONE (22:30)
[2024-12-15] MEDS ORDERED: ACETAMINOPHEN 500MG TABLET PO ONE (22:45)
[2024-12-16 15:18] LABS: *AMPHETAMINES SCREEN URINE NEGATIVE (NEGATIVE); *BARBITURATES SCREEN URINE NEGATIVE (NEGATIVE); *BENZODIAZEPINES SCREEN URINE NEGATIVE (NEGATIVE); *COCAINE SCREEN URINE NEGATIVE (NEGATIVE); CANNABINOID URINE SCREEN NEGATIVE (NEGATIVE); ECSTASY MDMA SCREEN URINE NEGATIVE (NEGATIVE); METHADONE URINE SCREEN NEGATIVE (NEGATIVE); OPIATES URINE SCREEN NEGATIVE (NEGATIVE); PHENCYCLIDINE URINE SCREEN NEGATIVE (NEGATIVE)
== END 2024-12-15 23:34 | disposition left against medical advice (07) ==
LOC: ER 19:37
DX: R10.30 Lower abdominal pain, unspecified (principal); R11.2 Nausea with vomiting, unspecified; J45.909 Unspecified asthma, uncomplicated; F41.9 Anxiety disorder, unspecified; Z79.1 Long term (current) use of non-steroidal anti-inflammatories (NSAID); Z79.899 Other long term (current) drug therapy; Z88.6 Allergy status to analgesic agent
CPT/HCPCS: 36415; 80048; 80305; 81003; 81025; 85025; 86850; 86900; 99283

== ENCOUNTER 2025-01-01 21:17 | Emergency (ER) | payer MEDICAID ==
[~2025-01-01] VITALS: Ht 177.8 cm; Wt 137.0 kg
[2025-01-01 22:05] VITALS: TEMP 36.9; O2SAT 100
[2025-01-01 23:15] LABS: BASOPHILS % 1.3 % (0.0-2.0); EOSINOPHILS % 2.7 % (0.0-5.0); HEMATOCRIT. 39.4 % (36.0-48.0); HEMOGLOBIN. 12.7 g/dL (12.0-16.0); LYMPHOCYTES % 21.9 % (20.0-50.0); MEAN PLATELET VOLUME 8.6 fl (7.4-10.4); MONOCYTES % 5.5 % (2.0-8.0); NEUTROPHILS % 68.6 % (40.0-76.0); PLATELET 283 x1000/uL (130-400); RED BLOOD CELL COUNT 4.76 mill/uL (4.2-5.4); RED CELL DISTRIBUTION WIDTH 22.1 % (11.6-14.6)
[2025-01-01 23:16] LABS: ADD RBC MORPHOLOGY YES
[2025-01-01 23:18] VITALS: TEMP 98.5
[2025-01-01] MEDS: ACETAMINOPHEN 325MG TABLET PO ONE (23:18)
[2025-01-01] MEDS: ONDANSETRON HCL 4MG TABLET PO ONE (23:18)
[2025-01-01 23:23] VITALS: BP 102/75; PULSE 66; RESP 18; O2SAT 100
[2025-01-01 23:25] LABS: PLATELET ESTIMATE NORMAL
[2025-01-01 23:27] LABS: CREATININE 0.9 mg/dL (0.6-1.0)
[2025-01-01 23:28] LABS: UREA NITROGEN BLOOD 10 mg/dL (9-23)
[2025-01-01 23:29] LABS: ASPARTATE AMINOTRANSFERASE 22 IU/L (<34)
[2025-01-01 23:30] LABS: BILIRUBIN DIRECT 0.1 mg/dL (<=3.0); BILIRUBIN TOTAL 0.5 mg/dL (0.1-1.0); PROTEIN TOTAL 7.2 g/dL (6.0-8.3)
[2025-01-01 23:53] LABS: HCG SCREEN NEGATIVE
== END 2025-01-02 00:18 | disposition home or self-care (01) ==
LOC: ER 21:17
DX: R10.20 Pelvic and perineal pain unspecified side (principal); F41.9 Anxiety disorder, unspecified; R10.30 Lower abdominal pain, unspecified; J45.909 Unspecified asthma, uncomplicated; Z90.49 Acquired absence of other specified parts of digestive tract; Z79.1 Long term (current) use of non-steroidal anti-inflammatories (NSAID); Z88.6 Allergy status to analgesic agent; Z79.899 Other long term (current) drug therapy
CPT/HCPCS: 99284; 76856; 80076; 80048; 84703; 83690; 85025; 36415; Q0162

== ENCOUNTER 2025-01-27 17:30 | Emergency (ER) | payer MEDICAID ==
[~2025-01-27] VITALS: Ht 175.3 cm; Wt 120.0 kg
[2025-01-27 17:38] VITALS: BP 132/83; PULSE 75; RESP 18; TEMP 36.8; O2SAT 100
[2025-01-27] MEDS: SODIUM CHLORIDE 0.9% 1,000 ML IV ONE (19:15)
[2025-01-27 20:36] VITALS: TEMP 98.3
[2025-01-27] MEDS: ONDANSETRON HCL 4MG/2ML INJ IV ONE (20:36)
[2025-01-27] MEDS: ACETAMINOPHEN 500MG TABLET PO ONE (20:36)
[2025-01-27 21:24] LABS: BASOPHILS % 0.7 % (0.0-2.0); EOSINOPHILS % 1.8 % (0.0-5.0); HEMATOCRIT. 47.2 % (36.0-48.0); HEMOGLOBIN. 14.9 g/dL (12.0-16.0); LYMPHOCYTES % 19.5 % (20.0-50.0); MEAN PLATELET VOLUME 9.0 fl (7.4-10.4); MONOCYTES % 5.5 % (2.0-8.0); NEUTROPHILS % 72.5 % (40.0-76.0); PLATELET 233 x1000/uL (130-400); RED BLOOD CELL COUNT 5.34 mill/uL (4.2-5.4); RED CELL DISTRIBUTION WIDTH 19.8 % (11.6-14.6)
[2025-01-27 21:35] LABS: INR 0.9
[2025-01-27 21:42] LABS: CREATININE 0.8 mg/dL (0.6-1.0); UREA NITROGEN BLOOD 11 mg/dL (9-23)
[2025-01-27 21:44] LABS: ASPARTATE AMINOTRANSFERASE 16 IU/L (<34); BILIRUBIN DIRECT 0.1 mg/dL (<=3.0); BILIRUBIN TOTAL 0.5 mg/dL (0.1-1.0); PROTEIN TOTAL 7.1 g/dL (6.0-8.3)
[2025-01-27 21:46] LABS: B-HCG QUANTITATIVE < 1 mIU/mL (<6)
[2025-01-27] MEDS ORDERED: FAMOTIDINE 20MG/2ML VIAL IV ONE (22:15)
[2025-01-27] MEDS ORDERED: KETOROLAC 15MG/ML VIAL IV ONE (22:15)
== END 2025-01-27 22:05 | disposition home or self-care (01) ==
LOC: ER 17:30 → CMPBEDREQ 01-28 07:34
DX: R10.84 Generalized abdominal pain (principal); F41.9 Anxiety disorder, unspecified; J45.909 Unspecified asthma, uncomplicated; R10.20 Pelvic and perineal pain unspecified side; Z90.49 Acquired absence of other specified parts of digestive tract; Z88.6 Allergy status to analgesic agent
CPT/HCPCS: 80076; 80048; 84702; 83690; 85025; 85610; 85730; 86850; 86900; 86901; 87340; 86592; 36415; 93976; 76856; 96374; 99285; J2405; J7030; Z7610 ×3